=== PATIENT | male | born 1965 | race Caucasian/White ===

== ENCOUNTER → 2019-01-17 | Outpatient (CLI) | payer BC ==
--- NOTE | 2019-01-17 17:13 | RAD ---
Examination: Ultrasound bilateral lower extremity arterial duplex HISTORY: History of peripheral vascular disease. COMPARISON: None available. Findings: Mild scattered atherosclerotic plaque identified throughout the bilateral lower extremity arterial system. No evidence of elevated velocities identified in the bilateral lower extremity arterial system. Triphasic waveforms identified throughout the bilateral lower extremity arteries. IMPRESSION: No evidence of hemodynamically significant stenosis Electronically signed by: Addison Castro MD (01/17/2019 5:10 PM) [place] [id number]
--- NOTE | 2019-01-17 17:34 | RAD ---
FOOT RIGHT 3V History: Cellulitis of the toe.. There is shortening and irregularity of the distal phalanges of the fourth and fifth toes, suggesting destruction or erosion of the distal aspects. No evidence of acute fracture. Joint spaces are maintained without dislocation. Enthesophytes at the posterior calcaneus. IMPRESSION: Shortening and irregularity of the distal aspects of the distal fourth and fifth phalanges could be due to erosion or destruction, most likely chronic. No definite acute abnormality, but MRI could be of benefit for further evaluation of the area of concern. Electronically signed by: Jareth Liao MD (01/17/2019 5:31 PM) [facility]
== END | disposition home or self-care (01) ==
LOC: US 15:14
PROVIDERS: ATTEND Family Medicine
DX: I70.203 Unspecified atherosclerosis of native arteries of extremities, bilateral legs (principal); M77.51 Other enthesopathy of right foot and ankle; L03.031 Cellulitis of right toe
CPT/HCPCS: 73630; 93925